=== PATIENT | female | born 1945 | race Native Hawaiian/Other Pacific Islander ===

== ENCOUNTER 2019-05-01 14:53 | Outpatient (CLI) | payer OTHER | END 2019-05-01 23:10 | disposition home or self-care (01) | LOC: LABW 14:53 | DX: R50.9 Fever, unspecified (principal); R05 Cough; R52 Pain, unspecified | CPT/HCPCS: 87502 ==

== ENCOUNTER → 2021-01-27 | Outpatient (CLI) | payer OTHER | LOC: RAD 13:45 | PROVIDERS: ATTEND Physician Assistant | DX: M25.511 Pain in right shoulder (principal) ==

== ENCOUNTER 2022-02-02 12:45 | Outpatient (CLI) | payer OTHER | END 2022-02-02 18:58 | disposition home or self-care (01) | LOC: RAD 12:45 | PROVIDERS: ATTEND Physician Assistant | DX: M25.522 Pain in left elbow (principal) ==

== ENCOUNTER 2022-05-11 12:47 | Outpatient (CLI) | payer OTHER | END 2022-05-11 18:59 | disposition home or self-care (01) | LOC: RAD 12:47 | PROVIDERS: ATTEND Physician Assistant | DX: M54.2 Cervicalgia (principal); M25.512 Pain in left shoulder; M25.561 Pain in right knee ==